=== PATIENT | female | born 1955 | race Caucasian/White ===

== ENCOUNTER 2024-10-18 19:12 | Emergency (ER) | payer MEDICARE, SELFPAY ==
--- NOTE | ~2024-10-18 | CT_ITS ---
CLINICAL HISTORY: R flank pain, CVAT CT abdomen and pelvis without contrast Comparison: None Findings: No consolidation in the imaged lung bases. Right renal hilar calcifications are favored to be vascular. No obstructing stone in either kidney or either ureter. Phleboliths are noted in the pelvis. Additional vascular calcifications include aorta and its branches. The adrenal glands are normal. Calcified remnants of old granulomatous process noted in the spleen. Mild volume loss of the pancreas. The gallbladder is surgically absent. Liver is unremarkable for noncontrast imaging and motion artifacts. Sola mesentery with fluid in the small mesenteric lymph nodes. No small bowel obstruction. Severe stool burden is present, including the cecum. No findings of acute appendicitis. Mild wall thickening of the urinary bladder. Uterus is diminutive or surgically absent. No adnexal soft tissue mass. Degenerative changes include multifocal vacuum disc phenomenon and multifocal facet arthropathy of the imaged spine. Likely enthesopathy of the imaged trochanters. IMPRESSION: 1. No obstructing stone in either kidney or either ureter. 2. Severe stool burden. No small bowel obstruction. 3. Sola mesentery. This document has been electronically signed by: Sage Pearce MD on 10/19/2024 01:02:03
[2024-10-18 19:19] VITALS: BMI 45.0
--- NOTE | 2024-10-18 19:21 | ED_ITS ---
HPI - General Adult General Chief complaint: Abdominal Pain Stated complaint: kidney infection/pain Time Seen by Provider: 10/18/24 23:32 Source: patient Mode of arrival: ambulatory Limitations: no limitations History of Present Illness ED Provider: Sharmin Bernal NP HPI narrative: Patient is a 69-year-old female who presents emergency department for evaluation. She reports that she was standing in the kitchen making dinner this evening when she had sudden onset of severe pain to the right posterior flank. She admits that she has had a history of a similar feeling pain in the past secondary to ?a renal cyst? that she states required admission to the hospital for a few days ultimately the cyst she drank and her symptoms improve. She also states that she was recently admitted to [facility] about 2 weeks ago due to norovirus resulting in severe dehydration where she was found to have a urinary tract infection states 09/30/2024 was prescribed a 7 day course of Macrobid. She has not had any continued genitourinary symptoms though she did notice this evening some discomfort after urination. She denies fevers, chills, headache, chest pain, shortness of breath, nausea, vomiting, diarrhea, constipation, hematochezia, melena, hematuria, will vaginal discharge or bleeding. Related Data Allergies Allergy/AdvReac Type Severity Reaction Status Date / Time amoxicillin [From AUGMENTIN] Allergy Unknown UNKNOWN Unverified 10/18/24 19:23 clavulanic acid Allergy Unknown UNKNOWN Unverified 10/18/24 19:23 [From AUGMENTIN] Review of Systems 2 Review of Systems: Yes all other systems are reviewed and are negative PMFSH Past Medical History Attestation statement: The following information was validated with the patient. Source: old records reviewed Physical Exam ED Vital Signs: Vital Signs - 24 hr 10/18/24 23:36 10/19/24 07:12 Temperature 98.5 F 98.5 F Pulse Rate 87 87 Respiratory Rate 18 18 Blood Pressure 157/72 H 157/72 H Pulse Oximetry 96 96 Oxygen Delivery Method Room Air Room Air BMI result Body Mass Index 45.0 Appearance: Alert.?Oriented to person, place and time. No acute distress.?Normal affect. CVS: Heart sounds normal. Normal heart rate and rhythm.? Pulses normal.?? Respiratory: No respiratory distress.? Lung sounds clear to auscultation bilaterally?? Abdomen: Soft with right mid such upper quadrant tenderness upon palpation. Right CVAT. Normoactive bowel sounds. ? Skin: Skin warm and dry.? Normal skin color.? Extremities: No lower extremity edema.? Neuro: Moves all extremities spontaneously. Sensation intact bilaterally. Ambulates with normal steady gait. Course Course Course Narrative: This is a Rapid Medical Examination (RME) performed by Manuel Patel PA-C in triage. Full HPI, ROS, assessment and treatment plan per primary provider in the Main ED. 69 yo female here w/ right flank pain which began acutely while cooking dinner tonight. admits to feeling generally unwell all day. endorses pain after urination. completed a course of macrobid 4 days ago for UTI. recent norovirus 2 wks ago. states she was hospitalized for renal cyst a few yrs ago. Plan: labs, UA Medications Administered Discontinued Medications Generic Name Dose Route Start Last Admin Trade Name Freq PRN Reason Stop Dose Admin Ketorolac Tromethamine 15 mg 10/19/24 00:15 10/19/24 00:41 Ketorolac Tromethamine 15 Mg/Ml Vial IM 10/19/24 00:16 15 mg ONCE ONE Administration Medical Decision Making Medical Decision Making [facility] Narrative: Patient is a 69-year-old female past medical history of hypertension, diabetes, depression, hyperlipidemia, GERD, asthma who presents emergency department for evaluation of sudden onset severe right flank pain as per HPI. On evaluation she does have notable CVA tenderness, pain upon palpation over the right mid abdomen tenderness in the right upper quadrant with negative Hanson sign. No rebound tenderness at McBurney's point. She is without signs of systemic toxicity. Reviewed workup obtained prior to my assumption. CBC is without leukocytosis anemia or thrombocytopenia. No electrolyte derangement. No KOURTNEY. LFTs and lipase are within normal range. Urinalysis with trace microscopic hematuria no evidence of infection. Viral serologies are negative. Pain is not exacerbated upon particular movements, and given its abrupt sudden onset I have a lower suspicion that this is a muscular etiology. Obtaining CT of the abdomen pelvis to evaluate for possible sizes, ranging cyst, lower suspicion for pyelonephritis given negative urinalysis. She is amenable to trialing Toradol for pain management at this time. Differential Diagnosis Differential Diagnoses: The differential diagnosis associated with the presentation includes (See narrative above) Admission/Observation Consideration of admission/observation: Escalation of care including admission/observation considered (See narrative above and course narrative for further detail) Lab Data MDM Lab Attestation statement: I reviewed the patient's lab results. (See narrative above) 10/18/24 20:49 10/18/24 20:49 Labs: Lab Results 10/18/24 Range/Units 20:49 WBC 7.6 (4.8-10.8) X10*3/uL RBC 4.12 L (4.20-5.50) X10*6/uL Hgb 12.5 (12.0-16.0) g/dl Hct 37.9 (37.0-47.0) % MCV 92.0 (80.0-98.0) fL MCH 30.3 (27.0-33.0) pg MCHC 33.0 (31.0-35.0) g/dl RDW 13.4 (11.0-16.0) % Plt Count 288 (160-400) X10*3/uL MPV 8.8 L (9.4-12.3) fL Immature Gran % (Auto) 0.3 (0.0-0.4) % Neut % (Auto) 57.5 (45-73) % Lymph % (Auto) 31.7 (20-40) % [place] % (Auto) 7.1 (2-11) % Eos % (Auto) 2.9 (0-4) % Baso % (Auto) 0.5 (0-2) % Lymph # (Auto) 2.4 (1.2-4.9) X10*3/uL [place] # (Auto) 0.5 (0.1-1.2) X10*3/uL Eos # (Auto) 0.2 (0.0-0.4) X10*3/uL Baso # (Auto) 0.0 (0.0-0.2) X10*3/uL Abs Immat Gran (auto) 0.02 (0.00-0.03) X10*3/uL Absolute Neuts (auto) 4.4 (2.0-8.3) x10*3/uL Absolute Nucleated RBC 0.000 (0.0-0.012) X10*3/uL Nucleated RBC % (auto) 0.0 (0.0-0.2) /100WBC Sodium 138 (135-145) mmol/L Potassium 4.1 (3.3-5.1) mmol/L Chloride 104 (96-108) mmol/L Carbon Dioxide 28 (22-29) mmol/L Anion Gap 10 L (12-20) BUN 18 H (9-16) mg/dL Creatinine 0.71 (0.5-1.4) mg/dL Estim Creat Clear Calc 103.1 Estimated GFR > 60 Random Glucose 198 H (60-115) mg/dL Calcium 9.1 (8.4-10.2) mg/dL Magnesium 2.0 (1.6-2.6) mg/dL Total Bilirubin 0.3 (0.0-1.0) mg/dL AST 21 (5-31) U/L ALT 16 (0-31) U/L Alkaline Phosphatase 83 (39-117) U/L Total Protein 7.6 (6.5-8.0) g/dL Albumin 4.3 (3.5-5.0) g/dL Lipase 33 (8-78) U/L Urine Color Yellow Urine Appearance Clear Urine pH 5.5 (5.0-9.0) Ur Specific Garvin 1.020 (1.005-1.025) Urine Protein Negative (Neg-Trace) mg/dL Urine Glucose (UA) >=1000 H (Negative) mg/dL Urine Ketones Negative (Negative) mg/dL Urine Blood Trace H (Negative) Urine Nitrite Negative (Negative) Ur Leukocyte Esterase Negative (Negative) Urine RBC 0-2 (0-2) /HPF Urine WBC 0-5 (0-5) /HPF Ur Squamous Epith Cells 6-10 (0-2) /HPF Urine Bacteria None Seen (None Seen) Hyaline Casts 0-2 (0-2) /LPF Influenza Type A (PCR) NEGATIVE (Negative) Influenza Type B (PCR) NEGATIVE (Negative) RSV RNA Qual (PCR) NEGATIVE (Negative) SARS-CoV-2 RNA (RT-PCR) NEGATIVE (Negative) Independent Interpretation I performed an independent interpretation of an: CT Scan (no hydro, no calculi) Radiology Impression Discussion of test interpretation with radiology: I have reviewed the radiologist's reading. Radiologist Impression: CT abdomen and pelvis without contrast Comparison: None Findings: No consolidation in the imaged lung bases. Right renal hilar calcifications are favored to be vascular. No obstructing stone in either kidney or either ureter. Phleboliths are noted in the pelvis. Additional vascular calcifications include aorta and its branches. The adrenal glands are normal. Calcified remnants of old granulomatous process noted in the spleen. Mild volume loss of the pancreas. The gallbladder is surgically absent. Liver is unremarkable for noncontrast imaging and motion artifacts. Sola mesentery with fluid in the small mesenteric lymph nodes. No small bowel obstruction. Severe stool burden is present, including the cecum. No findings of acute appendicitis. Mild wall thickening of the urinary bladder. Uterus is diminutive or surgically absent. No adnexal soft tissue mass. Degenerative changes include multifocal vacuum disc phenomenon and multifocal facet arthropathy of the imaged spine. Likely enthesopathy of the imaged trochanters. IMPRESSION: 1. No obstructing stone in either kidney or either ureter. 2. Severe stool burden. No small bowel obstruction. 3. Sola mesentery. External Record Review External record reviewed: Outpatient record Prescription Management I considered prescription management with: Pain Medication Chronic Conditions Patient?s care impacted by: Other (see narrative above) Discharge Plan Discharge Clinical Impression: Acute right flank pain Patient Disposition: Home, Self-Care Interventions: ED Discharge Assessment Last Done: 10/19/24 07:12 Discharge Date/Time: 10/19/24 07:12 Print Language: [place]an
[2024-10-18 20:58] LABS: MANUAL DIFF FLAG NO
[2024-10-18 21:00] LABS: Basophils Percent Auto 0.5 % (0-2); Eosinophils Absolute Auto 0.2 X10*3/uL (0.0-0.4); Eosinophils Percent Auto 2.9 % (0-4); Hematocrit 37.9 % (37.0-47.0); Hemoglobin 12.5 g/dl (12.0-16.0); Imm Gran Abs Auto 0.02 X10*3/uL (0.00-0.03); Imm Gran Pct Auto 0.3 % (0.0-0.4); Lymphocytes Absolute Auto 2.4 X10*3/uL (1.2-4.9); Lymphocytes Percent Auto 31.7 % (20-40); Mean Corpuscular Hemoglobin 30.3 pg (27.0-33.0); Mean Platelet Volume 8.8 fL (9.4-12.3); Monocytes Absolute Auto 0.5 X10*3/uL (0.1-1.2); Monocytes Percent Auto 7.1 % (2-11); Neutrophils Absolute Auto 4.4 x10*3/uL (2.0-8.3); Neutrophils Percent Auto 57.5 % (45-73); Platelet Count 288 X10*3/uL (160-400); Red Blood Count 4.12 X10*6/uL (4.20-5.50); Red Cell Distribution Width 13.4 % (11.0-16.0); White Blood Count 7.6 X10*3/uL (4.8-10.8)
[2024-10-18 21:01] LABS: Appearance Urine Clear; Color Urine Yellow; Glucose Urine UA >=1000 mg/dL (Negative); Leukocyte Esterase Urine Negative (Negative); Nitrite Urine Negative (Negative); PH 5.5 (5.0-9.0); UMIC TRIGGER UACC YES; Urine Blood Trace (Negative); Urine Ketones Negative (Negative); Urine Protein Negative (Neg-Trace)
[2024-10-18 21:06] LABS: Bacteria Urine None Seen (None Seen); Hyaline Casts Urine 0-2 /LPF (0-2); RBC Urine 0-2 /HPF (0-2); WBC Urine 0-5 /HPF (0-5)
[2024-10-18 21:14] LABS: Alanine Aminotransferase 16 U/L (0-31); Albumin Level 4.3 g/dL (3.5-5.0); Alkaline Phosphatase 83 U/L (39-117); Anion Gap 10 (12-20); Aspartate Amino Transferase 21 U/L (5-31); Bilirubin Total 0.3 mg/dL (0.0-1.0); Blood Urea Nitrogen 18 mg/dL (9-16); Calcium 9.1 mg/dL (8.4-10.2); Carbon Dioxide 28 mmol/L (22-29); Chloride 104 mmol/L (96-108); Creatinine Clr Calc Pharmacy 103.1; Estimated Glomerular Filt Rate > 60; Glucose Random 198 mg/dL (60-115); Lipase 33 U/L (8-78); Potassium 4.1 mmol/L (3.3-5.1); Sodium 138 mmol/L (135-145); Total Protein 7.6 g/dL (6.5-8.0)
[2024-10-18 21:36] LABS: Influenza A PCR NEGATIVE (Negative); Influenza B PCR NEGATIVE (Negative); Resp Syncy Virus RNA Qual PCR NEGATIVE (Negative); SARS COV2 PCR INHOUSE NEGATIVE (Negative)
[2024-10-18 23:36] VITALS: BP 157/72; PULSE 87; RESP 18; TEMP 36.9; O2SAT 96
[2024-10-19] MEDS: Ketorolac Tromethamine 15 MG/ML VIAL IM (00:41)
[2024-10-19 07:12] VITALS: BP 157/72; PULSE 87; RESP 18; TEMP 36.9; O2SAT 96
== END 2024-10-19 07:12 | disposition home or self-care (01) ==
PROVIDERS: Physician Assistant Medical; Emergency Provider Emergency Medicine; PCP Family Medicine
DX: R10.9 Unspecified abdominal pain (principal); I10 Essential (primary) hypertension; E11.9 Type 2 diabetes mellitus without complications; E78.5 Hyperlipidemia, unspecified; K21.9 Gastro-esophageal reflux disease without esophagitis; Z03.818 Encounter for observation for suspected exposure to other biological agents ruled out
CPT/HCPCS: 0241U; 74176; 80053; 81001; 81003; 83690; 83735; 85025; 96372; 99283; 99284; J1885

== ENCOUNTER → 2024-10-19 00:15 | Outpatient (BNV) | payer MEDICARE, SELFPAY | PROVIDERS: Emergency Provider Emergency Medicine; PCP Family Medicine; Visit Provider Radiology Neuroradiology | DX: K59.00 Constipation, unspecified (principal); I88.0 Nonspecific mesenteric lymphadenitis | CPT/HCPCS: 74176 ==